=== PATIENT | male | born 1960 | race Caucasian/White ===

== ENCOUNTER 2021-08-06 11:54 | Emergency (ER) | payer MEDICAID ==
[~2021-08-06] VITALS: Ht 170.2 cm; Wt 83.0 kg
[~2021-08-06 11:54] MED LIST: ALBUTEROL SUL0.083 % IN; ALLOPURINOL100 MG PO; ASPIRIN 81 LOW81 MG; GABAPENTIN100 MG PO; HYDROCODONE BIT10 MG; KAPSPARGO SPRIN25 MG; KETOCONAZOLE21 EX; LIPITOR40 M1 PO; MECLIZINE25 MG PO; NICODERM C21 MG/242; OMEPRAZOLE20 MG PO; PROCTOSOL HC2.5 % RE; PROVENTIL0.083 % IN; STIOLTO RESPIMA1 AER
[2021-08-06 14:06] LABS: HEMATOCRIT 43.8 % (39.0-50.0); HEMOGLOBIN 14.8 g/dl (14.0-18.0); IMMATURE GRANULOCYTES 0.1 % (0.0-5.0); MEAN CELL VOLUME 89.8 fL CALC (80.0-100.0); MEAN CORPUSCULAR HGB 30.3 pG CALC (26.0-32.0); MEAN CORPUSCULAR HGB CONC 33.8 g/dL CAL (32.0-36.0); NEUT# 4.52 thou/uL (1.82-7.42); RED BLOOD COUNT 4.88 mill/uL (4.70-6.10); RED CELL DISTRI WIDTH 11.9 % (11.5-15.5); URINE BILIRUBIN - DIPSTICK NEGATIVE (NEGATIVE); URINE BLOOD DIPSTICK NEGATIVE (NEGATIVE); URINE COLOR YELLOW; URINE GLUCOSE - DIPSTICK NEGATIVE (NEGATIVE); URINE KETONE NEGATIVE (NEGATIVE); URINE LEUK ESTERASE NEGATIVE (NEGATIVE); URINE PH 5.5 (4.5-8.0); URINE PROTEIN - DIPSTICK NEGATIVE (NEG-TRACE); URINE SPECIFIC GRAVITY 1.025
[2021-08-06 14:09] LABS: URINE NITRITE - DIPSTICK NEGATIVE (Negative)
[2021-08-06 14:21] LABS: ALKALINE PHOSPHATASE 130 u/l (38-126); ANION GAP 10 (6-22 (CALC)); BILIRUBIN, TOTAL 1.1 mg/dL (0.0-1.4); BUN 7 mg/dL (8-23); BUN/CREATININE RATIO 13 (12-20 (CALC)); C-REACTIVE PROTEIN 1.9 mg/dL (0-0.9); CARBON DIOXIDE 32 mmol/l (22-30); CHLORIDE 99 mmol/l (95-108); CREATININE 0.5 mg/dL (0.7-1.3); GFR > 60 ML/MIN (>=60 (CALC)); GFR FOR AFR.AMER. > 60 ML/MIN (>=60 (CALC)); LIPASE 31 u/l (23-300); MAGNESIUM 1.6 mg/dL (1.6-2.3); POTASSIUM 4.6 mmol/l (3.5-5.1); SGOT/AST 38 u/l (19-48); SODIUM 137 mmol/l (137-146); TOTAL PROTEIN 7.4 g/dL (6.3-8.2)
[2021-08-06] MEDS ORDERED: MORPHINE SUL30 M3 PO (19:07)
[2021-08-06] MEDS ORDERED: OXYCODONE PO (19:08)
[2021-08-06 20:01] VITALS: BP 143/73
== END 2021-08-06 20:12 | disposition short-term general hospital (02) ==
LOC: ED 11:54
PROVIDERS: Emergency Medicine
DX: M89.8X8 Other specified disorders of bone, other site (principal); I10 Essential (primary) hypertension; J44.9 Chronic obstructive pulmonary disease, unspecified
CPT/HCPCS: Q9967